=== PATIENT | male | born 1985 ===

== ENCOUNTER 2020-05-28 07:15 | Day surgery (SDC) | payer BC ==
[2020-05-23 11:03] LABS: BASOPHILS % (AUTO) 0.7 % (0-1); EOSINOPHILS # (AUTO) 0.4 X10'3 (0-0.9); EOSINOPHILS % (AUTO) 7.4 % (0-6); LYMPHOCYTES # (AUTO) 2.1 X10'3 (1.1-4.8); LYMPHOCYTES % (AUTO) 34.1 % (21-51); MEAN CORPUSCULAR HEMOGLOBIN 29.5 PG (27.0-31.0); MEAN CORPUSCULAR HGB CONC 33.1 g/dL (33.0-36.5); MEAN CORPUSCULAR VOLUME 89.3 FL (78-98); MEAN PLATELET VOLUME 9.1 FL (7.4-10.4); MONOCYTES # (AUTO) 0.4 X10'3 (0-0.9); MONOCYTES % (AUTO) 7.3 % (2-12); NEUTROPHILS % (AUTO) 50.5 % (42-75); PRE OP HEMATOCRIT 43.1 % (42.0-52.0); PRE OP HEMOGLOBIN 14.3 g/dL (14.0-17.9); PRE OP PLATELET COUNT 231 X10'3 (140-440); RED BLOOD COUNT 4.83 X10'6 (4.70-6.10); RED CELL DISTRIBUTION WIDTH 13.8 % (11.5-14.5)
[2020-05-23 11:17] LABS: ALBUMIN 3.8 G/DL (3.4-5.0); ALBUMIN/GLOBULIN RATIO 1.1 (1.1-1.5); ALKALINE PHOSPHATASE 65 IU/L (46-116); BLOOD UREA NITROGEN 13 MG/DL (7-18); BUN/CREATININE RATIO 10.5 (5.4-32.0); CALCIUM 9.1 MG/DL (8.5-10.1); CHLORIDE 107 MMOL/L (99-107); CREATININE 1.24 MG/DL (0.60-1.10); PRE OP ALT 34 U/L (30-65); PRE OP ANION GAP 6 (8-16); PRE OP AST 25 U/L (10-37); PRE OP BILIRUB, TOTAL 0.6 MG/DL (0.0-1.0); PRE OP GLUCOSE 87 MG/DL (70-104); PRE OP POTASSIUM 3.9 MMOL/L (3.4-5.1); PRE OP SODIUM 142 MMOL/L (135-145); TOTAL CARBON DIOXIDE 28.7 MMOL/L (24-32); TOTAL PROTEIN 7.3 G/DL (6.4-8.2); eGFR 66 ML/MIN
[~2020-05-28] VITALS: Ht 177.8 cm; Wt 85.0 kg
[2020-05-28] VITALS (11 sets, daily range): BP systolic 131–145; BP diastolic 72–89
[~2020-05-28 07:15] MED LIST: BUPIVAcaine 0.5% W/EPI /PF 30ml vial ONE; LIDOcaine 1% W/epiNEPHrine 1:100,000 20ml vial ONE; NO HOME MEDS; cefTAZidime 1gm inj ONE; cocaine 4% topical solution 4ml bottle ONE; famotidine 20mg tablet PO ONE; methylPREDNISolone acetate 80mg/ml inj**IM only ONE; mupirocin 2% ointment 22GM ONE; oxymetazoline 15 ML nasal spray NS ONE; ringers solution, lacted 1,000 ML IV SCH
[2020-05-28] MEDS ORDERED: sevoflurane 250ml liquid IH ONE (10:48)
[2020-05-28] MEDS ORDERED: propofol inj 20 ML IV ONE (10:50)
[2020-05-28] MEDS ORDERED: fentaNYL/PF 50MCG/1 ML 2ML syringe ONE (10:50)
[2020-05-28] MEDS ORDERED: midazolam 2 mg/2 ml injection ONE (10:50)
[2020-05-28] MEDS ORDERED: ringers solution, lacted 1,000 ML IV SCH (11:33)
[2020-05-28] MEDS ORDERED: meperidine/PF 25mg/ml syringe IV PRN ×3 (11:35)
[2020-05-28] MEDS ORDERED: ondansetron/PF 4mg/2ml inj IV PRN (11:35)
[2020-05-28] MEDS ORDERED: morphine 4 MG/ML inj SYRINge IV PRN (11:35)
[2020-05-28] MEDS ORDERED: morphine 2 MG/ML inj. syringe IV PRN (11:35)
[2020-05-28] MEDS ORDERED: proCHLORperazine 10 MG/2 ml inj IV PRN (11:35)
[2020-05-28] MEDS ORDERED: dexamethasone sod phosphate 4mg/ml inj. ONE (12:32)
[2020-05-28] MEDS ORDERED: ondansetron/PF 4mg/2ml inj ONE (12:32)
--- NOTE | 2020-05-28 13:15 | NUR ---
Received from OR via BED , accompanied by Anesthesiologist DR SAVAGE and report given by Anesthesiolgist. PATIENT WAKING UP, DENIES PAIN, V/S WNL, CSM INTACT, 20G PIV TO RUE, COTTONOID PACKING TO BILATERALLY SINUSES WITH SCANT DRAINAGE VISABLE AT THIS TIME
--- NOTE | 2020-05-28 14:55 | NUR ---
PATIENT A&OX4, DENIES PAIN, V/S WNL, CSM INTACT, 20G PIV TO D/C, COTTONOID PACKING TO BILATERALLY SINUSES D/C 30MIN AFTER ARRIVALE AND MEDS GIVEN PER DR MOORE ORDERS, SCANT DRAINAGE VISABLE AT THIS TIME TO SINUS GAUZE AFTER CHANGING GAUZE PAD. I HAVE REVIEWED D/C INSTRUCTIONS WITH PATIENT AND FAMILY AND THEY HAVE VERBALIZED UNDERSTANDING. PATIENT D/C HOME WITH ALL BELONGINGS AND FAMILY GAVE TRANSPORT HOME.
== END 2020-05-28 14:55 | disposition home or self-care (01) ==
LOC: PAS 07:15
PROVIDERS: ATTEND Otolaryngology
DX: J34.2 Deviated nasal septum (principal); J34.3 Hypertrophy of nasal turbinates; J32.8 Other chronic sinusitis; J33.8 Other polyp of sinus; F43.10 Post-traumatic stress disorder, unspecified; Z11.59 Encounter for screening for other viral diseases; Z79.01 Long term (current) use of anticoagulants; Z79.899 Other long term (current) drug therapy; Z98.890 Other specified postprocedural states
CPT/HCPCS: 30140; 30520; 31253; 31259; 31267; 36415; 61782; 70486; 80053; 82948; 85025; 85576; 85610; 85730; 87635; A6402; C1726; C9250; C9803; J0713; J1040; J1100; J2250; J2405; J2704; J3010; J7040; J7120; U0003; A4618; A7000